=== PATIENT | male | born 1950 | race Caucasian/White ===

== ENCOUNTER 2018-12-09 22:02 | Emergency (ER) | payer MEDICARE, BC ==
--- NOTE | 2018-12-09 22:20 | Emergency Department Record ---
History of Present Illness - General Chief complaint: Male Urogenital Problem Stated complaint: BLEEDING WITHOUT URINATING/FLANK PAIN Time Seen by Provider: 12/09/18 22:15 Source: Patient Mode of Arrival: Ambulatory Limitations: No limitations - History of Present Illness Initial comments: 68 yo male presents to ED for evaluation of bleeding for the penis this evening. Patient denies injury or trauma, denies anticoagulation medications. Patient reports that he got out of the shower this evening and noticed the bleeding while in the bathroom. Patient denies history of kidney stones, has seen Dr. Lewis for previous hydrocoele surgery left testicle. Complaint: Other Onset/Timin -: Hour(s) Location: Penis Radiation: None Severity: Moderate Consistency: Constant Improves with: None Worsens with: None Reports: Denies other symptoms - Related Data Previous Rx's Medication Instructions Recorded Azithromycin [Zithromax] 250 mg PO DAILY #6 tab 03/05/16 Allergies Allergy/AdvReac Type Severity Reaction Status Date / Time No Known Drug Allergies Allergy Verified 03/05/16 14:17 Review of Systems Constitutional: Denies: Chills, Fever, Malaise, Night sweats Eyes: Denies: Eye discharge, Eye pain ENT: Denies: Congestion, Ear pain, Epistaxis Respiratory: Denies: Cough, Dyspnea Cardiovascular: Denies: Chest pain, Dyspnea on exertion Endocrine: Denies: Fatigue, Heat or cold intolerance Gastrointestinal: Denies: Abdominal pain, Nausea, Vomiting Genitourinary: Reports: Hematuria. Denies: Incontinence, Retention Musculoskeletal: Denies: Arthralgia, Back pain Skin: Denies: Bruising, Change in color, Change in hair/nails Neurological: Denies: Abnormal gait, Confusion, Headache, Seizure Psychiatric: Denies: Anxiety Hematological/Lymphatic: Denies: Anemia, Blood Clots, Easy bleeding, Easy bruising Past Medical History - SOCIAL HISTORY Smoking Status: Never smoker - RESPIRATORY Hx Respiratory Disorders: Yes - CARDIOVASCULAR Hx Cardio Disorders: Yes Hx Hypertension: Yes (on meds fair control) - NEURO Hx Neuro Disorders: Yes Hx Neuropathy: Yes (feet) - GI Hx GI Disorders: No - Hx Genitourinary Disorders: Yes Hx UTI: Yes Comment:: left hydrocele - ENDOCRINE Hx Endocrine Disorders: Yes Hx Diabetes: Yes (recent dx less than 1 year) Comment:: does not check blood sugar - MUSCULOSKELETAL Hx Musculoskeletal Disorders: Yes - PSYCH Hx Psych Problems: Yes Hx Anxiety: Yes Hx Depression: Yes - HEMATOLOGY/ONCOLOGY Hx Hematology/Oncology Disorders: No Family Medical History Hx Cancer: Mother Hx Dementia: Father Hx Diabetes: Mother Hx Stroke: Father Physical Exam - General General Appearance: Alert, Oriented x3, Cooperative, Mild distress, Other ( Overall well appearing on examination, no pain on examination to suggest ureteral calculus.) Limitations: No limitations - Head Head exam: Atraumatic, Normocephalic, Normal inspection Head exam detail: negative: Abrasion, Contusion, Griggs's sign, General tenderness, Hematoma, Laceration - Eye Eye exam: Normal appearance. negative: Conjunctival injection, Periorbital swelling, Periorbital tenderness, Scleral icterus - ENT Ear exam: negative: Auricular hematoma, Auricular trauma Nasal Exam: negative: Active bleeding, Discharge, Dried blood, Foreign body Mouth exam: negative: Drooling, Laceration, Muffled voice, Tongue elevation - Neck Neck exam: Normal inspection. negative: Meningismus, Tenderness - Respiratory Respiratory exam: Normal lung sounds bilaterally. negative: Rales, Respiratory distress, Rhonchi, Stridor - Cardiovascular Cardiovascular Exam: Regular rate, Normal rhythm, Normal heart sounds - GI/Abdominal GI/Abdominal exam: Soft. negative: Rebound, Rigid, Tenderness - Rectal Rectal exam: Deferred - exam: Circumcision, Other (Mild area of bruising to the meatus on examination , no active bleeding is present on examination.) - Extremities Extremities exam: negative: Calf tenderness, Pedal edema, Tenderness - Back Back exam: Denies: CVA tenderness (R), CVA tenderness (L) - Neurological Neurological exam: Alert, Normal gait, Oriented X3 - Psychiatric Psychiatric exam: Normal affect, Normal mood - Skin Skin exam: Normal color. negative: Abrasion Type of lesion: negative: abrasion Course Vital Signs 12/09/18 22:12 Temperature 98.0 F Pulse Rate [ 72 Left] Respiratory 16 Rate Blood Pressure 158/91 [Left Arm] Pulse Ox 96 - Reevaluation(s) Reevaluation #1: 12/09/18 22:59 Laboratory studies were reviewed and are grossly unremarkable for an acute process. UA pending. Reevaluation #2: 12/09/18 23:42 CT Abdomen and Pelvs: Thick-walled bladder with mild adjacent stranding suspicious for cystitis. 3.8 mm sub-pleural nodule right middle lobe. Hepatic steatosis Reevaluation #3: 12/09/18 23:57 UA reviewed: 0-2 RBCs No WBCs No epidthelial cells 4+ Uric Acid crystals Moderate Mucus Patient was updated on all results May be the result of superficial abrasion/small laceration to the external surface of the meatus. Patient was updated on all results and appears stable for discharge at this time. Medical Decision Making - Lab Data Result diagrams: 12/09/18 22:30 12/09/18 22:30 Disposition Disposition: Discharge Clinical Impression: Hematuria Qualifiers: Hematuria type: gross Qualified Code(s): R31.0 - Gross hematuria Disposition: Home, Self-Care Condition: (2) Stable Instructions: Hematuria (ED) Additional Instructions: Return to ED if your symptoms worsen or if you have any concerns. Follow-up with Dr. Lewis in 3-5 days as directed. Referrals: TRINI LEWIS M.D. [MEDICAL DOCTOR] - Forms: Patient Portal Access Time of Disposition: 23:59 Quality - Quality Measures Quality Measures: N/A - Blood Pressure Screening Does Patient Have Any of the Following: Active Dx of HTN Blood Pressure Classification: Hypertensive Reading Systolic Measurement: 158 Diastolic Measurement: 91 Screening for High Blood Pressure: Patient Exclusion, Hx of HTN [[id number]]
[2018-12-09 22:40] LABS: BASO % 0.5 % (0-6); EOS % 1.8 % (0-6); GRAN % 65.9 % (47-80); HEMATOCRIT 48.5 % (42.0-52.0); HEMOGLOBIN 16.3 gm/dl (14.0-18.0); LYMPH % 21.5 % (16-45); MEAN CELL VOLUME 93.1 fl (81-97); MEAN CORPUSCULAR HEMOGLOBIN 31.3 pg (27-33); MEAN CORPUSCULAR HGB CONC 33.6 g/dl (32-36); MEAN PLATELET VOLUME 10.7 fl (7.4-10.4); MONO % 10.3 % (0-9); PLATELET COUNT 188 K/uL (130-400); RED BLOOD COUNT 5.21 M/uL (4.40-5.70); RED CELL DISTRIBUTION WIDTH 13.3 % (11.5-14.5); WHITE BLOOD COUNT W/O DIFF 7.9 K/uL (4.2-12.2)
[2018-12-09 22:49] LABS: BLOOD UREA NITROGEN 9 mg/dL (8-23); EST GLOMERULAR FILTRATION RATE > 60 mL/min
[2018-12-09 22:50] LABS: TOTAL PROTEIN 7.5 g/dL (6.6-8.7)
[2018-12-09 22:52] LABS: GLUCOSE,RANDOM 137 mg/dL (74-109)
[2018-12-09 22:55] LABS: ALB/GLOB RATIO 1.4 (1.1-1.8); ALBUMIN 4.4 g/dL (4.0-5.0); ALKALINE PHOSPHATASE 81 U/L (40-129); ALT/SGPT 52 U/L (<41); AST/SGOT 44 U/L (10.0-50.0)
[2018-12-09 23:45] LABS: URINE APPEARANCE SL CLOUDY; URINE BILIRUBIN SMALL (NEGATIVE); URINE BLOOD TRACE-I (NEGATIVE); URINE COLOR YELLOW; URINE GLUCOSE (UA) NEGATIVE (NEGATIVE); URINE KETONE TRACE (NEGATIVE); URINE LEUKOCYTE ESTERASE NEGATIVE (NEGATIVE); URINE NITRITE NEGATIVE (NEGATIVE)
[2018-12-09 23:55] LABS: URINE EPITHELIAL CELLS NONE SEEN (FEW); URINE RBC 0 - 2 (NONE SEEN); URINE WBC NONE SEEN (0-2/hpf)
[2018-12-09 23:56] LABS: URINE MUCUS MODERATE; URINE URIC ACID CRYSTALS 4+ /hpf
--- NOTE | 2018-12-11 13:42 | CT SCAN REPORT ---
EXAM: NONCONTRAST CT OF THE ABDOMEN AND PELVIS HISTORY: HEMATURIA, SUPRAPUBIC PAIN. TECHNIQUE: Noncontrast CT of the abdomen and pelvis was obtained. Comparison: CT abdomen and pelvis 09/23/08. FINDINGS: Tiny right middle lobe subpleural nodule is stable from 2009 comparison. Nodular surface contour of the liver. The gallbladder is surgically absent. Unremarkable noncontrast appearance of the adrenal glands and pancreas. Unremarkable spleen. No hydronephrosis. No intrarenal calculi. No focal colonic thickening or inflammation. Normal appendix. The stomach and small bowel are not dilated. No free air or free fluid. Coarse prostatic calcifications. The bladder is minimally distended. The bladder wall appears circumferentially thickened. Calcification of the aortoiliac arterial access without evidence of aneurysm. No acute osseous findings. IMPRESSION: 1. CIRCUMFERENTIAL URINARY BLADDER WALL THICKENING, MAY BE SEEN WITH CYSTITIS. 2. NODULAR CONTOUR OF THE LIVER SURFACE; MAY BE SEEN IN THE SETTING OF HEPATIC CIRRHOSIS. 3. SMALL RIGHT MIDDLE LOBE PULMONARY NODULE STABLE FROM 2009 CT COMPARISON. JOB NUMBER: [id number] [facility]
== END 2018-12-10 00:13 | disposition home or self-care (01) ==
LOC: ER 22:02
DX: R31.0 Gross hematuria (principal); R10.9 Unspecified abdominal pain; I10 Essential (primary) hypertension; E11.9 Type 2 diabetes mellitus without complications
CPT/HCPCS: 74176; 80053; 81001; 85025; 99283; 99284